=== PATIENT | female | born 1965 | race Caucasian/White ===

== ENCOUNTER → 2019-03-13 14:58 | Outpatient (BNVA) | payer BC, OTHER, SELFPAY | PROVIDERS: Family Provider Electrodiagnostic Medicine; PCP Electrodiagnostic Medicine; Visit Provider Specialist | DX: Z48.89 Encounter for other specified surgical aftercare (principal); Z96.652 Presence of left artificial knee joint; M17.11 Unilateral primary osteoarthritis, right knee | CPT/HCPCS: 73560; 73565 ==

== ENCOUNTER 2019-04-11 10:02 | Observation (INO) | payer BC, OTHER, SELFPAY ==
--- NOTE | 2019-04-03 09:32 | XR_ITS ---
WS: [id number] XR chest 2V* 36510 REASON FOR EXAM: total knee replacement FINDINGS: Heart and mediastinal interfaces were normal. The lung moreno are well aerated. There is no pneumonia, pleural effusion, mass effect. The hilum and apices are normal. There is degenerated changes throughout the thoracic spine. XR/XR chest 2V* 32244 IMPRESSION: No active cardiopulmonary changes.
[2019-04-03 09:44] VITALS: BMI 34.0
--- NOTE | 2019-04-03 10:08 | SUR.PREOP ---
PT CAME TO PRE OP AND DID NOT HAVE ANY ORDERS ENTERED FOR PRE OP OR SURGERY. CALLED ORTHO OFFICE AND SPOKE WITH ARETHA. ARETHA STATED THAT DR PANDA IS OUT OF OFFICE AND UNABLE TO ENTER ORDERS INTO EXPANSE, SHE WILL FAX PAPER ORDERS TO BE USED FOR PRE OP AND THAT DR. PANDA WILL REENTER ORDERS INTO EXPANSE WHEN SHE RETURNS TO OFFICE. WE WILL KEEP PAPER ORDERS IN CHART UNTIL EXPANSE ORDERS ARE PLACED THEN WILL REMOVE PAPER ORDERS.
--- NOTE | 2019-04-03 10:26 | ECG_ITS ---
Measurements Intervals [place] Rate: 60 P: -3 KS: 155 QRS: 1 QRSD: 84 T: 49 QT: 387 QTc: 388 SINUS RHYTHM MINIMAL VOLTAGE CRITERIA FOR LVH, CONSIDER NORMAL VARIANT [MEETS CRITERIA IN ONE OF: R(aVL), S(V1), R(V5), R(V5/V6)+S(V1)] INTERPRETATION BASED ON A DEFAULT AGE OF 40 YEARS Compared to ECG 10/24/2018 09:59:16 No significant changes Electronically Signed On 04-03-2019 11:26:31 MANAGER VAN by Jose Gold M.D. [email or web address]
--- NOTE | 2019-04-03 10:27 | ANES.PREANE2 ---
Pre-Anesthetic Assessment Pre-Anesthetic Assessment: Height/Weight: Height 1.75 m Weight 104.326 kg Proposed Procedure: Operation Date: 04/11/19 07:00 Proposed Procedures p Total Knee Arthroplasty 31430 M17.11(Right) - Elmira Stratton MD Social: Social History: No alcohol and No tobacco Exam: Pre-Anes Outpt Exam: alert, oriented x 3, clear to auscultation bilaterally and regular rate & rhythm Airway: Submandibular: WNL Cervical ROM: WNL MP: 2 Dentition: Other (teeth ok) History/ROS: No significant history except as noted Pulmonary: Pulmonary: None reported CV/HEM: CV/HEM: HTN : : None reported Hepatic: Hepatic: None reported GI: GI: None reported Metabolic: Metabolic: Morbid obesity Musc/skel: Musc/skel: OA/DJD Neuropsych: Neuropsych: None reported Anesthetic Plan: ASA status: 3 Anesthesia: Anesthesia Evaluation and General Risk of > 500 ml blood loss (7ml/kg in children): No PFSH Anesthesia PFSH: Medical History (Updated 03/13/19 @ 19:40 by Elmira Stratton MD) Osteoarthritis of knees, bilateral Surgical History (Updated 03/13/19 @ 19:40 by Elmira Stratton MD) History of total left knee replacement Social History Smoking and tobacco status: former smoker Alcohol intake: current Alcohol intake frequency: holidays/special occasions only Data Anesthesia Cardiac Studies: No Data to Display
[2019-04-03 11:03] LABS: Basophils % 0.3 %; Eosinophils # 0.1 10^3/uL (0.0-0.8); Eosinophils % 0.9 %; Hematocrit 39.7 % (37.0-47.0); Hemoglobin 12.5 g/dL (11.5-15.3); Lymphocytes # 2.2 10^3/uL (0.8-4.8); Lymphocytes % 21.2 %; Mean Corpuscular HGB Conc 31.5 g/dL (30.0-36.0); Mean Corpuscular Hemoglobin 28.7 pg (28.0-34.0); Mean Corpuscular Volume 91.3 fL (81-99); Monocytes # 0.8 10^3/uL (0.2-0.9); Monocytes % 7.6 %; Neutrophils # 7.2 10^3/uL (1.8-7.7); Neutrophils % 69.5 %; Nucleated Red Blood Cells % 0 %; Platelet Count 276 10^3/cmm (130-400); Red Blood Count 4.35 10^6/uL (4.1-5.3); Red Cell Distribution Width 13.9 % (12.1-15.1); White Blood Count 10.4 10^3/uL (4.0-10.0)
[2019-04-03 11:04] LABS: Add Urine Microscopic? YES; Bilirubin Urine 1+ (NEGATIVE); Blood Urine Neg (Negative); Glucose Urine UA Norm (Normal); Ketones Urine Negative (Negative); Leukocyte Esterase Urine Negative (Negative); Nitrate Urine Negative (Negative); Protein Urine Neg (Negative); Specific Gravity, Urine 1.025 (1.005-1.030); Urine Appearance Cloudy (CLEAR); Urine Color Yellow (Yellow); Urobilinogen Urine 1 mg/dL (Negative)
[2019-04-03 11:12] LABS: INR 0.94 (0.8-1.2)
[2019-04-03 11:19] LABS: Alanine Aminotransferase 50 U/L (0-33); Albumin Level 4.2 g/dL (3.5-5.2); Alkaline Phosphatase 115 IU/L (35-105); Anion Gap 17.1 (5-19); Aspartate Amino Transferase 33 U/L (0-32); Blood Urea Nitrogen 33 mg/dL (6-20); Calcium 10.9 mg/dL (8.5-10.5); Carbon Dioxide 25 mmol/L (22-29); Chloride 102 mmol/L (98-107); Globulin 3.4 g/dL (1.3-4.6); Glomerular Filtration Rate 38.9 mL/min (90-130); Glucose 148 mg/dL (65-115); Potassium 4.1 mmol/L (3.5-5.1); Sodium 140 mmol/L (136-145); Total Bilirubin 0.4 mg/dL (0.15-1.2); Total Protein 7.6 g/dL (6.6-8.7)
[2019-04-03 11:43] LABS: RBC Urine 0-4 /hpf (0-2)
[2019-04-03 11:44] LABS: Add Urine Culture? No; Amorphous Sediment Urine 2+; Bacteria Urine 1+; Mucus Urine 1+; Squamous Epithelial Cell Urine 0-4 (0-5)
[2019-04-11] VITALS (17 sets, daily range): BP systolic 110–152; BP diastolic 68–86; PULSE 62–75; RESP 15–20; TEMP 36.3–37; O2SAT 93–100
[2019-04-11] MEDS: sodium chloride 0.9% 1,000 ML 30 ML IV (06:05)
[2019-04-11] MEDS: CELEcoxib 200 mg Capsule 400 MG PO (06:06)
--- NOTE | 2019-04-11 06:12 | P.ANESUD_ITS ---
Pre-Anesthetic Update Pre-Anesthetic Assessment: Date of Surgery/Procedure: 04/11/19 Preop Dorcas gnosis: DJD right knee Proposed Procedure: Operation Date: 04/11/19 07:00 Proposed Procedures p Total Knee Arthroplasty 51373 M17.11(Right) - Elmira Stratton MD Any changes to Pre-Anesthetic Assessment?: No Changes from Pre-Anesthetic Assessment: sips with meds this AM (celebrex), losartan. Metoprolol last night at 1900 Last Intake: Intake Last Liquid Date 04/11/19 Last Liquid Time 04:45 Last Solid Date 04/10/19 Last Solid Time 18:00 Vitals: Temperature 97.4 F L 04/11/19 05:40 Temperature Source Temporal Artery S can 04/11/19 05:40 Pulse Rate 65 04/11/19 05:40 Respiratory Rate 18 04/11/19 05:40 Blood Pressure 152/86 04/11/19 05:40 Blood Pressure Diana n 108 04/11/19 05:40 Pulse Oximetry 96 04/11/19 05:40 Oxygen Delivery Me thod 04/11/19 05:40 Exam: Pre-Anes Outpt Exam: alert, oriented x 3, clear to auscultation bilaterally and regular rate & rhythm Cardiac Studies: No Data to Display
[2019-04-11] MEDS: midazolam 1 mg/mL INJ 5 ML 5 MG IVP (06:18)
--- NOTE | 2019-04-11 06:33 | ANES.PROC ---
Anesthesia Procedures Procedure/Date: 04/11/19 Nerve Block ^: Nerve Block 1: Main Anesthesia: general anesthesia Time Out Performed: Yes Consent: requested by attending/covering physician, from patient, risks and benefits reviewed and patient agrees to proceed Nerve block location: adductor canal (R) Anesthesia monitors applied: pulse oximetry, BP cuff and oxygen Nerve block position: supine Anesthetic Used: ropivicaine 0.5% and with decadron ( 4mg) Amount of anesthesia used (mL): 30 Nerve Stimulator Used?: No Interscalene/Femoral BLK: 4 stimuplex 21 g needle used for position and inplane approach Injection: neg aspiration of heme and paresthesia +/- Patient Tolerated Procedure: well and no complications Complications: none
--- NOTE | 2019-04-11 06:59 | W.PM.OPSUD ---
Surgery/Procedure H&P Update DATE OF PROCEDURE: April 11, 2019 DATE H&P PERFORMED: 03/13/19 H&P UPDATE INFORMATION: I have examined patient prior to procedure, No changes to prior documentation and H&P is in [facility] on date indicated PREOP DIAGNOSIS: DJD right knee PLANNED PROCEDURE: Operation Date: 04/11/19 07:00 Proposed Procedures p Total Knee Arthroplasty 83778 M17.11(Right) - Elmira Stratton MD
[2019-04-11] MEDS: vancomycin 1,000 MG SDV 1000 MG XX (08:04)
[2019-04-11] MEDS: ceFAZolin 1,000 mg SDV 1000 MG IRRIGATION ×2 (08:05)
--- NOTE | 2019-04-11 10:01 | PM.OP ---
Operative Report Date of procedure: April 11, 2019 Pre-op Diagnosis: DJD right knee Post-op Diagnosis: Right knee DJD with flexion contracture, varus deformity, and limited flexion Post-op Findings: Severe degenerative osteoarthritis with large osteophytes and flexion contracture Procedure Done: Right total knee arthroplasty utilizing the following components: The [place] triathlon Tritanium posterior stabilized left femoral component size 4 with a triathlon Tritanium tibial component size 4 and a size 4 x 19 mm posterior stabilized tibial insert. Patella was triathlon Tritanium asymmetric patella size 32 x 10 mm. All were press fitted. Implants: See above Specimens removed/disposition: Bone, disposed of Pathology: none sent Surgeon: Elmira Stratton Electrical Logging Operator: [facility] OR technicians Anesthesia: General and Nerve Block (Adductor canal) Estimated blood loss (mL): 25 Tourniquet time (min): 120 IV fluids (mL): 1,800 Urine output (mL): 400 Complications: None Findings: Severe degenerative osteoarthritis with large osteophytes surrounding the trochlear groove as well as posteriorly. Severe loss of motion with flexion contracture and limited flexion to less than 60 degrees. Condition: stable Disposition: observation Brief History: This 53-year-old woman presented with complaints of severe pain in her right knee. The knee is limited her significantly in her activities of daily living. She states she lived in chronic pain she wished to proceed with total knee arthroplasty. Risks and complications were discussed with her including risks related to her weight with a BMI at 34, and also risks secondary to her age. Procedure: The patient was brought to the operating theater, and after undergoing adequate general intubated anesthesia with supplemental regional block, the right lower extremity was prepped with Dura-Prep and draped in usual fashion following placement of a tourniquet high on the leg. The leg was then draped free. Following prepping and draping, the leg was exsanguinated, and the tourniquet was elevated to 275 mmHg for a total tourniquet time of 120 minutes. Prior to elevation of the tourniquet, but following exposure of the site of surgery, a surgical pause was performed. At the time of the surgical pause, we confirmed the site and side of surgery. Additionally, we confirmed the appropriate and timely administration of preoperative antibiotics, Ancef 2 g and transexemic acid 1 g. The availability of equipment was confirmed, and the patient's identity was verbalized as well. Following the surgical pause, an incision was made centering over the patella continuing proximally and distally as necessary to allow access to the knee joint. Dissection continued through skin and soft tissues using a scalpel. Hemostasis was obtained using electrocautery. The skin incision was followed by a median parapatellar arthrotomy. The leg was extended and the patella was everted. Following this, the leg was returned to flexed position. The distal femur was exposed and a drill hole was made in this for placement of the distal femoral jig. The distal femoral jig was set at 5? of valgus. The distal femoral cutting block was then placed in appropriate position, and an judd wing was used to confirm an appropriate amount of distal femur would be resected. The distal femoral resection was accomplished with 10 mm of bone being resected distally. After the distal femoral resection had been accomplished, the femur was measured and it measured a size 4. Medial lateral dimension also measured a size 4. A size 4 femoral cutting block was placed in position, and we were then able to accomplish the anterior, posterior and chamfer cuts. This jig was then removed and the notch guide was placed in position. With the notch guide in appropriate position, the notch was excised including resection of the anterior and posterior cruciate ligaments. This notch was to allow for the posterior stabilized femoral component. At this point, the femur was prepared and attention was directed to the proximal tibia. The posterior knee retractor was placed along with medial and lateral retractors. Further resection of the menisci were accomplished as we had better visualization. A complete meniscectomy was performed both medially and laterally with care being taken to protect the popliteus. Retractors were then placed so that the proximal tibia was well visualized. A drill hole was then made in the tibia for placement of the intramedullary guide. This guide was placed so that approximately 2 mm of bone would be resected from the deficient medial tibial plateau. The intramedullary guide was utilized supplemented with an extramedullary guide to assure appropriate alignment for the proximal tibial resection. The proximal tibial jig was then evaluated, pinned in position, and the proximal tibial resection was accomplished without difficulty. The jig was removed and the proximal tibia was measured. It measured a size 4. We then performed a trial reduction with an 16 mm insert into the size 4 tray. The femoral component was placed in position for the trial reduction, and the knee was placed through range of motion. The knee was felt to be slightly loose medially greater than laterally. We were able to increase to a 19 mm insert. There was excellent stability with excellent varus-valgus alignment with appropriate patellar tracking. This was felt to be the appropriate size insert. There was full extension and flexion without lift off and the rotation of the tibia was marked. Alignment was checked from the hip to the ankle, and this was noted to be appropriate as well. Attention was then directed to the patella. The patella was measured with a caliper. We resected sufficient patella to leave approximately 15 mm of patella remaining. Measurements of the patella then indicated that a size asymmetric 32 mm x 10 mm was the appropriate patellar size. We then placed the jig to drill for the 3 pegs of the press-fit patella, and these drill holes were made without incident. A trial patella was then placed and the knee was placed through range of motion. The patella was noted to track nicely without evidence of subluxation. The femur was prepared for a press-fit femur by drilling 2 holes for the femoral pegs. All trial components were subsequently removed. The tibial tray was then pinned into position, and we broached the tibia for the stem of the tibial component. Subsequently, 4 drill holes were made for placement of the press-fit tibia. This was accomplished without difficulty. Care was taken to assure appropriate rotation of the tibia as well as appropriate position on the proximal tibia. The tibial tray was completely seated on the proximal tibia. Following broaching, the tibial guide was removed, and all surfaces were copiously irrigated. The surfaces were then dried and a bone plug was placed into the distal femur. Exparel was also injected at this point. The Tritanium tibia was impacted into position. The beaded femur was then impacted into position in a cementless fashion. The tibial insert was placed. The patella was pressed into position with a patellar clamp. The knee was irrigated with 20 mL of Betadine and 500 mL of normal saline, and this was allowed to remain in the knee for 3-4 minutes. The knee was then copiously irrigated and suctioned dry. Attention was then directed to closure. Closure was accomplished with 0 Vicryl in the fascial tissues, 2-0 Monocryl was used in the subcutaneous tissues, and the skin was closed with skin jesús. A sterile dressing was then placed consisting of Xeroform gauze, 4 x 4's, ABDs, sterile soft roll, and an Troy wrap. The patient was returned the Recovery Room in a satisfactory condition. X-rays were obtained there. The patient will be discharged to the floor for postoperative rehabilitation and pain management. She'll be admitted to the floor as observation for medical and pain management as well as aggressive physical therapy and range of motion. There were no specimens and no complications.
[2019-04-11] MEDS: fentaNYL 50 mcg/mL INJ 2mL IVP ×2 (10:19→10:24)
--- NOTE | 2019-04-11 10:28 | XR_ITS ---
WS: [id number] Right knee, 2 views, 04/11/2019 Clinical Data: Postop Comparison: Right knee, 03/13/2019. Findings: A right knee arthroplasty has been performed. The components are in good position. Midline jesús ar e seen. There are air-fluid levels in the joint from the recent surgery. XR/XR knee RT 3V* [id number] Impression: Right knee arthroplasty.
--- NOTE | 2019-04-11 10:30 | SUR.PHASEI ---
1009 PT TO PACU AWAKE ALERT , C/O OF RT KNEE PAIN OF 8 SEE PAIN MED GIVEN, PT REPOSITIONED FIRST ICE TO KNEE DISTAL PULSE STRONG REGULAR AND MARKED BILAT FOOT PUMPS ON BISHOP TO DD WITH YELLOW CLEAR URINE TO TUBING AND BAG. 1015 PT MORE ALERT ON RA TRIAL, PT TAKING OCC ICE CHIP 1016 PT SATS 89-90% PLACED ON 3LNC SATS QUICKLY UP TO 95% NO DISTRESS SEE PAIN MEDS GIVEN 1032 X RAYS DONE, PT ALERT VSS NO DISTRESS RT KNEE DRESSING D/I
[2019-04-11] MEDS: oxyCODONE-APAP 5-325 mg Tablet 1 TAB PO ×2 (11:13→17:19)
--- NOTE | 2019-04-11 11:14 | SUR.PHASEI ---
1050 PT TO FLOOR AWAKE ALERT TALKATIAVE WITH MURALI RN AND C/O OF PAIN OF 7 TO RT KNEE PT OK WITH TAKING PO PAIN MED FACE SCALE 3 , BP 132/85, SATS ON RA 98% HR 65, RESP 20
[2019-04-11] MEDS: TRAMadol 50 mg Tablet PO ×2 (12:11→19:56)
[2019-04-11] MEDS: acetaminophen 500 mg Tablet 1000 MG PO ×2 (12:11→17:18)
[2019-04-11] MEDS: sodium chloride 0.9% 1,000 ML 80 ML IV (12:12)
[2019-04-11] MEDS: chlorhexidine gluconate 0.12% Btl 473 mL 30 ML MUCOUS MEM ×3 (12:12→20:54)
[2019-04-11 14:07] LABS: Basophils % 0.2 %; Hematocrit 35.1 % (37.0-47.0); Hemoglobin 10.8 g/dL (11.5-15.3); Lymphocytes # 0.8 10^3/uL (0.8-4.8); Lymphocytes % 4.4 %; Mean Corpuscular HGB Conc 30.8 g/dL (30.0-36.0); Mean Corpuscular Hemoglobin 28.1 pg (28.0-34.0); Mean Corpuscular Volume 91.2 fL (81-99); Mean Platelet Volume 10.4 fL (7.4-10.4); Monocytes # 0.3 10^3/uL (0.2-0.9); Monocytes % 1.4 %; Neutrophils # 17.6 10^3/uL (1.8-7.7); Neutrophils % 92.9 %; Nucleated Red Blood Cells % 0 %; Platelet Count 258 10^3/cmm (130-400); Red Blood Count 3.85 10^6/uL (4.1-5.3); Red Cell Distribution Width 13.5 % (12.1-15.1)
[2019-04-11 14:33] LABS: Alanine Aminotransferase 47 U/L (0-33); Albumin Level 3.6 g/dL (3.5-5.2); Alkaline Phosphatase 97 IU/L (35-105); Anion Gap 20.2 (5-19); Aspartate Amino Transferase 40 U/L (0-32); Blood Urea Nitrogen 19 mg/dL (6-20); Calcium 8.9 mg/dL (8.5-10.5); Carbon Dioxide 19 mmol/L (22-29); Chloride 101 mmol/L (98-107); Globulin 3.2 g/dL (1.3-4.6); Glomerular Filtration Rate 51.4 mL/min (90-130); Glucose 243 mg/dL (65-115); Potassium 4.2 mmol/L (3.5-5.1); Sodium 136 mmol/L (136-145); Total Bilirubin 0.3 mg/dL (0.15-1.2); Total Protein 6.8 g/dL (6.6-8.7)
[2019-04-11] MEDS: sennosides-docusate Tablet 2 TAB PO (17:17)
[2019-04-11] MEDS: iron polysaccharide complex 150 mg Capsule PO (17:18)
[2019-04-11] MEDS: calcium carbonate 500 mg Chew Tablet 1000 MG PO (17:18)
[2019-04-11] MEDS: CELEcoxib 200 mg Capsule PO (20:52)
[2019-04-11] MEDS: duloxetine 30 mg Capsule PO (20:52)
[2019-04-11] MEDS: metoprolol succinate ER (24 HR) 100 mg Tablet PO (21:45)
[2019-04-12] VITALS (7 sets, daily range): BP systolic 110–133; BP diastolic 68–83; PULSE 58–74; RESP 16–18; TEMP 36.6–36.9; O2SAT 96–99
[2019-04-12] MEDS: TRAMadol 50 mg Tablet PO ×2 (02:01→10:46)
[2019-04-12] MEDS: sodium chloride 0.9% 1,000 ML 80 ML IV (02:02)
[2019-04-12 05:32] LABS: Basophils % 0.1 %; Hematocrit 29.4 % (37.0-47.0); Hemoglobin 9.1 g/dL (11.5-15.3); Lymphocytes # 2.1 10^3/uL (0.8-4.8); Lymphocytes % 18.1 %; Mean Corpuscular Hemoglobin 28.9 pg (28.0-34.0); Mean Corpuscular Volume 93.3 fL (81-99); Mean Platelet Volume 10.2 fL (7.4-10.4); Monocytes # 1.4 10^3/uL (0.2-0.9); Monocytes % 11.8 %; Neutrophils # 8.1 10^3/uL (1.8-7.7); Neutrophils % 69.4 %; Nucleated Red Blood Cells % 0 %; Platelet Count 249 10^3/cmm (130-400); Red Blood Count 3.15 10^6/uL (4.1-5.3); Red Cell Distribution Width 13.8 % (12.1-15.1); White Blood Count 11.6 10^3/uL (4.0-10.0)
[2019-04-12 05:45] LABS: Anion Gap 14.8 (5-19); Blood Urea Nitrogen 15 mg/dL (6-20); Carbon Dioxide 22 mmol/L (22-29); Chloride 104 mmol/L (98-107); Glomerular Filtration Rate 64.8 mL/min (90-130); Glucose 183 mg/dL (65-115); Osmolality Calculated 285 mOsm/kg (285-295); Potassium 3.8 mmol/L (3.5-5.1); Sodium 137 mmol/L (136-145)
[2019-04-12] MEDS: oxyCODONE-APAP 5-325 mg Tablet 1 TAB PO ×2 (07:30→12:02)
--- NOTE | 2019-04-12 07:54 | PC.OT ---
OT screen completed. Pt had already gotten self dressed prior to OT arriving. She demonstrated ability to doff and don socks, complete toilet transfer with use of walker, and wash hands at sink without loss of balance. She lives in home without steps or stairs, has shower chair and walker from prior knee surgery. OT not recommended at this time.
[2019-04-12] MEDS: aspirin 325 mg EC Tablet PO (08:27)
[2019-04-12] MEDS: iron polysaccharide complex 150 mg Capsule PO (08:27)
[2019-04-12] MEDS: hydroCHLOROthiazide 25 mg Tablet PO (08:27)
[2019-04-12] MEDS: calcium carbonate 500 mg Chew Tablet 1000 MG PO (08:27)
[2019-04-12] MEDS: cholecalciferol (vitamin D3) 1,000 unit Tablet 1000 UNIT PO (08:27)
[2019-04-12] MEDS: losartan 50 mg Tablet 100 MG PO (08:27)
[2019-04-12] MEDS: chlorhexidine gluconate 0.12% Btl 473 mL 30 ML MUCOUS MEM ×2 (08:28→12:00)
[2019-04-12] MEDS: sennosides-docusate Tablet 2 TAB PO (08:28)
[2019-04-12] MEDS: multivitamin therapeutic Tablet 1 TAB PO (08:28)
[2019-04-12] MEDS: acetaminophen 500 mg Tablet 1000 MG PO (10:45)
[2019-04-12] MEDS: CELEcoxib 200 mg Capsule PO (10:45)
--- NOTE | 2019-04-12 12:19 | PC.CHAP ---
Pastoral Care Encounter/Spiritual Assessment Type of Contact [] Declined dispute resolution analyst visit [] Patient/Family/Request visit [] Outpatient visit [] Follow-up visit [] Physician referral [] Code/Alert [x] Routine visit [] Staff referral [] Actively dying [] Patient sleeping [] Family support [] [] Out of room [] Palliative care [] [] Receiving care in room [] Pre-surgical visit [] Trauma [] Long length of stay [] ICU visit [] Other: Relational/Emotional Strength [x] Patient feels connected with others/family/visitors/staff [] Distress [] Loneliness/isolation [] Abandonment Spirituality of Patient [x] Person of Brenda [x] Attends Yazdanism of their Brenda [x] Believes in Prayer [] Reads Bible or Temple materials [] There are Spiritual issues to be addressed Staff Respiratory Therapist Interventions [x] Prayer [x] Active listening [x] Non-anxious presence [x] Spiritual/emotional support [] Crisis/trauma care [] Spiritual counseling [] Bereavement support [] Provided bereavement packet [] Provided Bible/devotional materials [] Provided toy/stuffed animal, coloring book to patient or family member [] Provided Communion [] Anointing/[place] [] Salvation [x] Completed spiritual assessment [] Other: Impact on Illness or Injury [] Angry [] Fearful [] Anxious [] Often cries [] Exhaustion [] Unable to work [] Unable to attend christianity [] Unable to walk/stand [] Unable to read [] Unable to drive [] Unable to eat/drink [] Unable to sleep [] Unable to be with family [] Patient intubated [] Other: Summary patient very happy with results Time spent with patient 10 min
--- NOTE | 2019-04-12 13:10 | P.DS_ITS ---
Discharge Providers Date of Admission: 04/11/19 10:02 Date of Discharge: April 12, 2019 Attending Provider at Admission: Elmira Stratton MD Attending Provider at Discharge: Elmira Stratton MD Primary Care Provider: Patrick Peters DO Diagnoses at Discharge Discharge Diagnosis (1) Osteoarthritis of knees, bilateral: Status: Acute Problem details: Patient is s/p bilateral total knee arthroplasties. Qualifiers: Osteoarthritis type: primary Qualified Code(s): M17.0 - Bilateral primary osteoarthritis of knee (2) History of total right knee replacement (TKR): Status: Acute Reason for Visit Reason for Visit: Reason For Visit: Primary osteoarthritis right knee Hospital Course 2 Hospital Course: Patient underwent right total knee arthroplasty on yesterday, April 11, uneventfully. Procedure accomplished was: Right total knee arthro plasty utilizing the following components: The [place] triathlon Tritanium posterior stabilized left femoral component size 4 with a triathlon Tritanium tibial component size 4 and a size 4 x 19 mm posterior stabilized tibial insert. Patella was triathlon Tritanium asymmetric patella size 32 x 10 mm. All were press fitted. Postoperatively, she was brought to the floor for observation, pain management, and physical therapy. Patient previously underwent left total knee arthroplasty, and she has done very well from this. The plan was that the patient would work with physical therapy and if able, would be discharged to home. Unfortunately, her insurance does not allow home physical therapy. This was also the case following her last total knee, and she did very well following this. Discharge Summary: The patient will be discharged to home and will participate in a home physical therapy without the assistance of home physical therapist. Physical Exam Narrative: EXAM NARRATIVE: The patient's knee dressing is removed. There is no evidence of infection or DVT. There is no drainage. The knee is well aligned. She has discomfort along the medial aspect, but there is no pain with varus stress testing. Range of motion is minimally tender. Const: COMMON NORMALS: no apparent distress, oriented x3 and alert GENERAL APPEARANCE: cooperative and comfortable ORIENTATION/CONSCIOUSNESS: Yes awake HENMT: COMMON NORMALS: normocephalic and head/scalp atraumatic HEAD & SCALP: normocephalic and atraumatic Eye: GENERAL EYE: normal appearance of both eyes Chest: COMMONS NORMALS: inspection of chest normal Resp: COMMON NORMALS: normal respiratory effort EFFORT & INSPECTION: Yes able to speak in complete sentences and Yes symmetric chest movement Extremity: RIGHT LOWER EXTREMITY: Yes knee joint Right knee: Yes inspection (No erythema or drainage.), Yes palpation (Minimal tenderness to palpation medially.) and Yes neurovascular exam (Intact with no evidence of DVT.) Neuro: COMMON NORMALS: oriented x3 SENSORIUM/ORIENTATION: Yes alert Psych: COMMON NORMALS: mental status grossly normal APPEARANCE: Yes grossly normal ATTITUDE: Yes calm and Yes engaged ATTENTION/CONCENTRATION: Yes attention grossly intact Skin: COMMON NORMALS: no rashes or lesions noted GENERAL SKIN EXAM: no rashes or lesions noted Urinary Catheter Management^: [place]: Cath Placed During This Visit: yes, but has since been removed by the nurse Reason for Continuing Indwelling Catheter: Not indwelling catheter Urinary Catheter Date of Insertion: 04/11/19 Urinary Catheter Time of Insertion: 07:20 Date Urinary Catheter Removed: 04/12/19 Time Urinary Catheter Discontinued: 06:30 Discharge Data Data Completed and Pending: Completed Studies During Hospitalization Category Date Time Status XR chest 2V* 7104 6 Routine Exams 04/03/19 09:32 Completed XR knee RT 3V* 73 562 Stat Exams 04/11/19 10:28 Completed Pending at discharge Category Date Time Status Antibody Identifi cation Routine Lab 04/11/19 06:00 Results Leukocyte Reduced RBC Routine Lab 04/11/19 06:00 Results Type and Screen R outine Lab 04/11/19 06:00 Results Urinalysis Routin e Lab 04/11/19 05:29 Ordered Labs from last 24 hours 04/12/19 04/12/19 04/11/19 04:38 04:38 13:42 WBC 11.6 H RBC 3.15 L Hgb 9.1 L Hct 29.4 L MCV 93.3 MCH 28.9 MCHC 31.0 RDW 13.8 Plt Count 249 MPV 10.2 Neut % (Auto) 69.4 Lymph % (Auto) 18.1 [place] % (Auto) 11.8 Eos % (Auto) 0.0 Baso % (Auto) 0.1 Neut # (Auto) 8.1 H Lymph # (Auto) 2.1 [place] # (Auto) 1.4 H Eos # (Auto) 0.0 Baso # (Auto) 0.0 Nucleated RBC % (a uto) 0 Nucleated RBCs # 0.0 Sodium 137 136 Potassium 3.8 4.2 Chloride 104 101 Carbon Dioxide 22 19 L Anion Gap 14.8 20.2 H BUN 15 19 Creatinine 0.9 1.1 H GFR Calculation 64.8 L 51.4 L Glucose 183 H 243 H Calculated Osmolal ity 285 Calcium 9.0 8.9 Total Bilirubin 0.3 AST 40 H ALT 47 H Alkaline Phosphata se 97 Total Protein 6.8 Albumin 3.6 Globulin 3.2 04/11/19 13:42 WBC 19.0 H RBC 3.85 L Hgb 10.8 L Hct 35.1 L MCV 91.2 MCH 28.1 MCHC 30.8 RDW 13.5 Plt Count 258 MPV 10.4 Neut % (Auto) 92.9 Lymph % (Auto) 4.4 [place] % (Auto) 1.4 Eos % (Auto) 0.0 Baso % (Auto) 0.2 Neut # (Auto) 17.6 H Lymph # (Auto) 0.8 [place] # (Auto) 0.3 Eos # (Auto) 0.0 Baso # (Auto) 0.0 Nucleated RBC % (a uto) 0 Nucleated RBCs # 0.0 Sodium Potassium Chloride Carbon Dioxide Anion Gap BUN Creatinine GFR Calculation Glucose Calculated Osmolal ity Calcium Total Bilirubin AST ALT Alkaline Phosphata se Total Protein Albumin Globulin Vitals: Last Vital Signs Temp 97.8 F 04/12/19 10:41 Pulse 63 04/12/19 10:41 Resp 18 04/12/19 12:02 BP 133/83 04/12/19 10:41 Pulse Ox 99 04/12/19 10:41 Discharge Plan Discharge Patient Disposition: Home, Self-Care Condition: Stable Prescriptions: New oxycodone-acetaminophen 5-325 mg Tablet 1 tab PO Q4H PRN (Reason: Severe Pain) Qty: 30 RF: 0 acetaminophen 500 mg Tablet 500 mg PO Q8H 30 Days Qty: 90 RF: 0 aspirin 325 mg Tablet,Delayed Release (Dr/Ec) 325 mg PO DAILY PRN (Reason: DVT prophylaxis) 30 Days Qty: 30 RF: 0 Continued losartan-hydrochlorothiazide 100-25 mg tablet 1 tab PO QDAY RF: 0 metoprolol succinate 100 mg tablet extended release 24 hr 100 mg PO QPM RF: 0 trazodone 50 mg tablet 25 mg PO QDAY RF: 0 duloxetine 30 mg PO BEDTIME RF: 0 diclofenac sodium 75 mg Tablet,Delayed Release (Dr/Ec) 75 mg PO BID RF: 0 Discharge Orders: Discharge Order (Routine); Ordered 04/12/19 Ordered By: Elmira Stratton Referrals: [facility] [Outside] Elmira Stratton MD [Physician] - 04/26/19 10:15 am Discharge Diet: Usual diet Discharge Activity: Resume usual activity, Increase activity as tolerated, Use walker/crutches as instructed and As per PT/OT instructions Patient Instructions: Total Knee Replacement (DC) Activity Restrictions/Additional Instructions: May weight bear as tolerated. Ambulation, range of motion, strengthening, and gait training per physical therapy in hospital instruction. 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
== END 2019-04-12 14:04 | disposition home or self-care (01) ==
LOC: MEDSURG 10:04
PROVIDERS: Admitting Provider Specialist; Family Provider Electrodiagnostic Medicine; PCP Electrodiagnostic Medicine; Visit Provider Specialist
PROC: (CPT 27447; principal; 2019-04-11 07:00)
DX: M17.11 Unilateral primary osteoarthritis, right knee (principal); Z82.49 Family history of ischemic heart disease and other diseases of the circulatory system; Z83.3 Family history of diabetes mellitus; Z87.891 Personal history of nicotine dependence; I10 Essential (primary) hypertension; E66.01 Morbid (severe) obesity due to excess calories; Z68.34 Body mass index [BMI] 34.0-34.9, adult
CPT/HCPCS: 27447; 12345; 36415; 51702; 71046; 73221; 73562; 80048; 80053; 81001; 85025; 85610; 86850; 86900; 86902; 93005; 96361; 96365; 96374; 96375; 97110; 97116; 97161; C1776; C9290; G0378; J0131; J0690; J1100; J2001; J2250; J2405; J2704; J2795; J3010; J3370; J3490; J7030

== ENCOUNTER → 2019-04-26 10:18 | Outpatient (BNVA) | payer BC, OTHER, SELFPAY | PROVIDERS: Family Provider Electrodiagnostic Medicine; PCP Electrodiagnostic Medicine; Visit Provider Specialist | DX: Z48.89 Encounter for other specified surgical aftercare (principal); Z96.653 Presence of artificial knee joint, bilateral | CPT/HCPCS: 73560; 73565 ==

== ENCOUNTER → 2019-05-08 10:20 | Outpatient (BNVA) | payer BC, OTHER, SELFPAY | PROVIDERS: Family Provider Electrodiagnostic Medicine; PCP Electrodiagnostic Medicine; Visit Provider Specialist | DX: Z48.89 Encounter for other specified surgical aftercare (principal); Z96.653 Presence of artificial knee joint, bilateral | CPT/HCPCS: 73565 ==

== ENCOUNTER 2019-05-08 14:48 | Outpatient (CLI) | payer BC, OTHER, SELFPAY | END 2019-05-08 14:49 | disposition home or self-care (01) | LOC: SPT 14:49 | PROVIDERS: Family Provider Electrodiagnostic Medicine; PCP Electrodiagnostic Medicine; Visit Provider Specialist | DX: Z46.89 Encounter for fitting and adjustment of other specified devices (principal); S76.111D Strain of right quadriceps muscle, fascia and tendon, subsequent encounter; X58.XXXD Exposure to other specified factors, subsequent encounter; Z96.651 Presence of right artificial knee joint | CPT/HCPCS: L1812 ==

== ENCOUNTER → 2019-05-15 08:45 | Outpatient (BNVA) | payer BC, OTHER, SELFPAY | PROVIDERS: Family Provider Electrodiagnostic Medicine; PCP Electrodiagnostic Medicine; Visit Provider Specialist | DX: Z48.89 Encounter for other specified surgical aftercare (principal); Z96.653 Presence of artificial knee joint, bilateral | CPT/HCPCS: 73560; 73565 ==

== ENCOUNTER → 2019-05-25 08:25 | Outpatient (BNVA) | payer BC, OTHER, SELFPAY | PROVIDERS: Family Provider Electrodiagnostic Medicine; PCP Electrodiagnostic Medicine; Visit Provider Specialist | DX: Z48.89 Encounter for other specified surgical aftercare (principal); Z96.653 Presence of artificial knee joint, bilateral | CPT/HCPCS: 73560; 73565 ==

== ENCOUNTER → 2019-06-21 14:52 | Outpatient (BNVA) | payer BC, OTHER, SELFPAY | PROVIDERS: Family Provider Electrodiagnostic Medicine; PCP Electrodiagnostic Medicine; Visit Provider Specialist | DX: Z48.89 Encounter for other specified surgical aftercare (principal); Z96.651 Presence of right artificial knee joint; Z96.652 Presence of left artificial knee joint | CPT/HCPCS: 73560; 73565 ==

== ENCOUNTER 2019-12-27 06:45 | Outpatient (CLI) | payer BC, OTHER, SELFPAY ==
--- NOTE | 2019-12-27 | US_ITS ---
WS: [id number] ULTRASOUND ABDOMEN LIMITED CLINICAL INFORMATION: TRANSAMINASES SERUM ELEVATED COMPARISON: None. FINDINGS: Liver Size: Enlarged Craniocaudal length: 21.3 cm. Echogenicity: Coarse echogenicity Surface nodularity: None. Mass (size and location): None. Bile ducts Intrahepatic ducts: Normal. Common bile duct diameter: 0.5 cm. Gallbladder Removed Pancreas Normal as visualized. Right kidney: Normal. Hydronephrosis: None. Size: 9.9 cm x 6.7 cm x 6.4 cm. Abdominal aorta and IVC Visualized portions are normal. Ascites: None. US/US abdomen limited [id number] IMPRESSION: 1. Hepatomegaly with diffuse fatty infiltration. 2. Gallbladder has been removed. 3. Normal common bile duct. 4. No hydronephrosis in right kidney.
== END 2019-12-27 06:46 | disposition home or self-care (01) ==
PROVIDERS: PCP Electrodiagnostic Medicine; Visit Provider Electrodiagnostic Medicine
DX: R74.01 Elevation of levels of liver transaminase levels (principal); R16.0 Hepatomegaly, not elsewhere classified; K76.0 Fatty (change of) liver, not elsewhere classified
CPT/HCPCS: 76705

== ENCOUNTER → 2020-01-01 08:16 | Outpatient (BNVA) | payer BC, OTHER, SELFPAY | PROVIDERS: PCP Electrodiagnostic Medicine; Visit Provider Specialist | DX: Z48.89 Encounter for other specified surgical aftercare (principal); Z96.651 Presence of right artificial knee joint; M25.461 Effusion, right knee | CPT/HCPCS: 73560; 73565 ==

== ENCOUNTER 2021-09-24 07:51 | Outpatient (CLI) | payer BC, OTHER, SELFPAY ==
--- NOTE | 2021-09-24 08:02 | MM_ITS ---
WS: [id number] SCREENING DIGITAL BREAST TOMOSYNTHESIS MAMMOGRAM WITH CAD HISTORY: SCREENING COMPARISON: 11/16/2016, 08/20/2014 Bilateral CC and MLO with tomosynthesis and synthetic mammography submitted. Computer aided detection analyzed. Breast composition: There are scattered areas of fibroglandular density. Asymmetry in the central RIG HT breast seen best on the CC projection is stable. There is a new nodule measuring 9 mm in the poste rior LEFT breast near 1:00. This may be due to adjacent nodules or single ovoid nodule. MM/[place] [id number] IMPRESSION: BI-RADS: 0-Incomplete: Need additional imaging evaluation FOLLOW UP: Need Additional Imaging LEFT breast: Spot compression views (CC and MLO). True ML. Ultrasound to follow if abnormality persists.
== END 2021-09-24 07:52 | disposition home or self-care (01) ==
PROVIDERS: PCP Electrodiagnostic Medicine; Visit Provider Electrodiagnostic Medicine
DX: Z12.31 Encounter for screening mammogram for malignant neoplasm of breast (principal)
CPT/HCPCS: 77063; 77067

== ENCOUNTER 2021-11-12 14:06 | Outpatient (CLI) | payer BC, OTHER, SELFPAY ==
--- NOTE | 2021-11-12 14:12 | MM_ITS ---
WS: [id number] ADDITIONAL VIEWS LEFT MAMMOGRAM with tomosynthesis. LEFT BREAST ULTRASOUND HISTORY: ABNORMAL MAMMO COMPARISON: 09/24/2021 and 11/16/2016 LEFT MAMMOGRAM: Spot compression views and true ML with tomosynthesis and sympathetic mammography. The lobulated asymmetry persists in the posterior LEFT breast near 12-1 o'clock. This may be two smal l adjacent nodules or a lymph node with lucent hilum. LEFT ovoid mass measures 8 mm. BREAST ULTRASOUND 2-D and color Doppler imaging submitted. The 8 mm nodule is not definitely identified by ultrasound. There are a few small cysts which are loretta ntified but not in the correct dictation. Favor the mammographic finding is probably benign but shoul d have follow-up evaluation. MM/[place] [id number] IMPRESSION: BI-RADS: 3-Probably Benign FOLLOW UP: 6 Month Follow-up Recommend diagnostic LEFT mammogram and possible ultrasound follow-up in 6 [facility] hs.
== END 2021-11-12 14:07 | disposition home or self-care (01) ==
PROVIDERS: PCP Electrodiagnostic Medicine; Visit Provider Electrodiagnostic Medicine
DX: R92.8 Other abnormal and inconclusive findings on diagnostic imaging of breast (principal)
CPT/HCPCS: 76642; 77061

== ENCOUNTER 2022-07-28 14:38 | Outpatient (CLI) | payer BC, OTHER, SELFPAY ==
--- NOTE | 2022-07-28 14:43 | MM_ITS ---
WS: [id number] RIGHT DIGITAL TOMOSYNTHESIS MAMMOGRAPHY WITH CAD. LEFT breast ultrasound, limited HISTORY: 6[facility] COMPARISON: 11/12/2021, 09/24/2021, 11/16/2016 Technique: CC, MLO and ML views. Spot compression LEFT CC and MLO. Breast composition: There are scattered areas of fibroglandular density. Ovoid mass towards the 12-1 o'clock axis at a posterior depth is more likely a lymph node on today's imaging exam. No increase i n size since the prior examination. Ovoid mass measures 8.5 mm with a lucent center. LEFT breast ultrasound, limited. Breast mass is not identified by ultrasound. There are a few small cysts within the LEFT breast but t hese are not in a similar location nor do they correspond to the size of the mammographic abnormality . MM/[place] [id number] IMPRESSION: BI-RADS: 3-Probably Benign FOLLOW UP: 6 Month Follow-up Patient to return in 6 months for annual mammogram. At that time this ovoid mas s in the posterior LEFT breast can be reevaluated. Favor this is probably a lym ph node.
== END 2022-07-28 14:39 | disposition home or self-care (01) ==
LOC: RAD 14:41
PROVIDERS: PCP Electrodiagnostic Medicine; Visit Provider Electrodiagnostic Medicine
DX: Z12.31 Encounter for screening mammogram for malignant neoplasm of breast (principal); N60.02 Solitary cyst of left breast
CPT/HCPCS: 76642; 77061; G0279

== ENCOUNTER 2023-03-16 14:09 | Outpatient (CLI) | payer BC, OTHER, SELFPAY ==
--- NOTE | 2023-03-16 14:17 | MM_ITS ---
WS: [id number] DIAGNOSTIC BILATERAL DIGITAL BREAST TOMOSYNTHESIS MAMMOGRAPHY WITH CAD HISTORY: 6[facility] ABN MAMMO COMPARISON: 09/24/2021 TECHNIQUE: Bilateral craniocaudad, mediolateral oblique, and mediolateral views are submitted with to mosynthesis and SM. Spot compression LEFT CC and MLO. Computer aided detection utilized. Breast composition: There are scattered areas of fibroglandular density. No interval change in appear ance of either breast. The lobulated nodule in the posterior upper outer quadrant of the LEFT breast is reidentified with no change. Stable since 09/24/2021. Due to long-term stability ultrasound is not necessary at this time. There is been no change in any of the small asymmetries within either breast. No suspicious calcification. IMPRESSION: MM/[place] [id number] BI-RADS: 2-Benign FOLLOW UP: 1 Year Follow-up
== END 2023-03-16 14:10 | disposition home or self-care (01) ==
LOC: RAD 14:09
PROVIDERS: PCP Electrodiagnostic Medicine; Visit Provider Electrodiagnostic Medicine
DX: R92.8 Other abnormal and inconclusive findings on diagnostic imaging of breast (principal); R92.323 Mammographic fibroglandular density, bilateral breasts; N63.21 Unspecified lump in the left breast, upper outer quadrant; N64.89 Other specified disorders of breast
CPT/HCPCS: 77062; G0279

== ENCOUNTER 2023-12-02 10:13 | Day surgery (SDC) | payer BC, OTHER, SELFPAY ==
[2023-12-02] VITALS (9 sets, daily range): BP systolic 149–168; BP diastolic 78–98; PULSE 64–77; RESP 17–18; TEMP 36.3–36.9; O2SAT 98–100; BMI 29.9
--- NOTE | 2023-12-02 01:13 | W.PM.OPSFHP ---
Same Day Surgery H&P Indication for Procedure/HPI DATE OF PROCEDURE: December 02, 2023 CHIEF COMPLAINT/INDICATIONFOR SURGICAL PROCEDURE: abnormal uterine bleeding PREOP DIAGNOSIS: abnormal uterine bleeding PLANNED PROCEDURE: Operation Date: 12/02/23 11:55 Proposed Procedures p Hysteroscopy Hysteroscopy w/ Endometrial Sampling 34283, N93.9(Not Applicable) - MD kamari Mathew Possible endometrial Poylpectomy(Not Applicable) - Ivan Good MD 58 y.o. last normal menstrual period in 2017 had episode of vaginal bleeding in August Medications/Allergies* Home Medications Medication Instructions Recorded Confirmed Type atorvastatin 10 mg tablet 10 mg PO DAILY 10/20/23 12/01/23 History empagliflozin 10 mg tablet 10 mg PO DAILY 10/20/23 12/01/23 History (Jardiance) glimepiride 1 mg tablet 1 mg PO DAILY 10/20/23 12/01/23 History lisinopril 2.5 mg tablet 2.5 mg PO DAILY 10/20/23 12/01/23 History tirzepatide 5 mg/0.5 mL mg SUBCUT 12/01/23 History subcutaneous pen injector (Mounjaro) Allergies/Adverse Reactions Allergy/AdvReac Type Severity Reaction Status Date / Time No Known Allergies Allergy Verified 12/01/23 08:57 Pertinent History/Comorbid Conditions* Medical History (Updated 10/20/23 @ 17:06 by Kanwal Lozano APN, TANYA) No pertinent past medical history Neghx:thyroid,dvt/pe PCP: Dr. Peters Accelerated essential hypertension Type 2 diabetes mellitus Osteoarthritis of knees, bilateral Patient is s/p bilateral total knee arthroplasties. Surgical History (Updated 10/20/23 @ 16:56 by Kanwal Lozano APN, TANYA) History of bilateral knee replacement H/O tubal ligation Hx of cholecystectomy History of arthroscopic knee surgery Family History (Updated 10/20/23 @ 08:45 by Anna Richardson LPN) Diabetes Brother Breast cancer Mother Cancer Father Stomach cancer Hypertension Brother Mother Sister Denies family history of Ovarian cancer Prostate cancer Uterine cancer Thyroid disease Stroke Social History Smoking and tobacco/nicotine status: never used tobacco/nicotine Pertinent Exam Findings alert, oriented x 3, clear to auscultation bilaterally and regular rate & rhythm Pertinent Data Pelvic sono 09-16-23 uterus 6.8 cm Endometrium thickened and heterogeneous, 9 mm Normal ovaries Pap 8-24 NILM, endometrial cells identified; negative HPV Recommendations Surgery/Procedure today Coding Level of Care Code Acute Code for Chg Fwd Time Spent (min) 30
--- NOTE | 2023-12-02 10:48 | ECG_ITS ---
[facility]: 2023-12-02 Pat Name: Shauna Mendoza Department: Room: Gender: Female Press Writer: : 1965 Requested By: Abrahan Ramirez Order Number: [id number] Reading MD: CALVIN SANZ Measurements Intervals [place] Rate: 58 P: 55 VA: 172 QRS: 17 QRSD: 92 T: 60 QT: 415 QTc: 411 Interpretive Statements SINUS BRADYCARDIA Compared to ECG 04/03/2019 10:17:54 Sinus rhythm no longer present Electronically Signed On 12-04-2023 18:21:12 CDT by CALVIN SANZ [email or web address]
--- NOTE | 2023-12-02 11:19 | P.ANESASSM_ITS ---
Pre-Anesthetic Assessment Height/Weight: Height 5 ft 10 in Weight 209 lb O2 Del Method Room Air 12/02/23 10:56 Preop Diagnosis: abnormal uterine bleeding Operation Date: 12/02/23 11:55 Proposed Procedures p Hysteroscopy Hysteroscopy w/ Endometrial Sampling 18599, N93.9(Not Applicable) - Ivan Good MD s Possible endometrial Poylpectomy(Not Applicable) - Ivan Good MD Was Beta Tony taken within 24 hours: N/A Was Clonidine taken within 24 hours: N/A Last intake: Intake Last Liquid Date 12/01/23 Last Liquid Time 23:55 Last Solid Date 12/01/23 Last Solid Time 19:30 Exam alert, oriented x 3, clear to auscultation bilaterally and regular rate & rhythm Airway Submandibular: within normal limits Cervical ROM: within normal limits Mallampati: Class II Dentition: full Anesthetic Plan ASA status: 2 Anesthesia: General Other: No prior issues with anesthesia NPO since yesterday evening History of hypertension on lisinopril Type 2 diabetes on Mounjaro, taken 11/22/2023 Denies any pulmonary issues METs greater than 4 Plan for general anesthesia with LMA Medications/Allergies Home Medications Medication Instructions Recorded Confirmed Last Taken Type atorvastatin 10 mg tablet 10 mg PO DAILY 10/20/23 12/01/23 12/01/23 History empagliflozin 10 mg tablet 10 mg PO DAILY 10/20/23 12/01/23 12/01/23 History (Jardiance) glimepiride 1 mg tablet 1 mg PO DAILY 10/20/23 12/01/23 12/01/23 History lisinopril 2.5 mg tablet 2.5 mg PO DAILY 10/20/23 12/01/23 12/01/23 History tirzepatide 5 mg/0.5 mL mg SUBCUT 12/01/23 11/22/23 History subcutaneous pen injector (Mounjaro) Allergies Allergy/AdvReac Type Severity Reaction Status Date / Time No Known Allergies Allergy Verified 12/01/23 08:57 [facility] Anesthesia Medical History (Updated 10/20/23 @ 17:06 by Kanwal Lozano APN, TANYA) No pertinent past medical history Neghx:thyroid,dvt/pe PCP: Dr. Peters Accelerated essential hypertension Type 2 diabetes mellitus Osteoarthritis of knees, bilateral Patient is s/p bilateral total knee arthroplasties. Surgical History (Updated 10/20/23 @ 16:56 by Kanwal Lozano APN, TANYA) History of bilateral knee replacement H/O tubal ligation Hx of cholecystectomy History of arthroscopic knee surgery Family History Brother Diabetes Hypertension Father Cancer Stomach cancer Mother Breast cancer Hypertension Sister Hypertension Denies family history of Ovarian cancer Prostate cancer Uterine cancer Thyroid disease Stroke Social History Smoking and tobacco/nicotine status: never used tobacco/nicotine Data Anesthesia 12/02/23 11:13 Cardiac Studies: 2 No Data to Display
[2023-12-02 11:20] LABS: Glucose Point of Care 134 mg/dL (70-110)
[2023-12-02 11:40] LABS: Anion Gap 13.2 (5-19); Blood Urea Nitrogen 17 mg/dL (8-23); Carbon Dioxide 25 mmol/L (22-29); Chloride 105 mmol/L (98-107); Creatinine Clr Calc Pharmacy 106.6148; Glomerular Filtration Rate 85.4 mL/min (90-130); Glucose 152 mg/dL (65-115); Osmolality Calculated 293 mOsm/kg (285-295); Potassium 4.2 mmol/L (3.5-5.1); Sodium 139 mmol/L (136-145)
--- NOTE | 2023-12-02 12:09 | W.PM.OPSUD ---
Surgery/Procedure H&P Update DATE OF PROCEDURE: December 02, 2023 DATE H&P PERFORMED: 12/02/23 H&P UPDATE INFORMATION: I have reviewed H&P completed within last 30 days, I have examined patient prior to procedure and No changes to prior documentation PREOP DIAGNOSIS: abnormal uterine bleeding PLANNED PROCEDURE: Operation Date: 12/02/23 11:55 Proposed Procedures p Hysteroscopy Hysteroscopy w/ Endometrial Sampling 49194, N93.9(Not Applicable) - Ivan Good MD s Possible endometrial Poylpectomy(Not Applicable) - Ivan Good MD
[2023-12-02] MEDS: sodium chloride 0.9% 1,000 ML 30 ML IV (12:18)
--- NOTE | 2023-12-02 14:05 | PM.OP ---
Operative Report Date of procedure: December 02, 2023 Pre-op diagnosis: postmenopausal bleeding Post-op diagnosis: same Post-op findings: one 6 cm endocervical polyp several small endometrial polyps moderate amount of endometrial tissue Procedure done: removal of 6 cm endocervical polyp Hysteroscopy Endometrial sampling and polypectomy with Myosure curettage of uterus Implants: none Specimens removed/disposition: endocervical polyp endometrial tissue Surgeon: Ivan Good MD Anesthesia: MAC Estimated blood loss (mL): 5 Complications: none Findings: one 6 cm endocervical polyp several small endometrial polyps moderate amount of endometrial tissue Brief History: 58 y.o. LNMP 2018 Had episode of vaginal bleeding in August with clots and cramping No bleeding or spotting since Procedure: Informed consent signed. Patient was taken to the operating room. Anesthesia was induced. Patient was placed in dorsolithotomy position, prepped and draped for hysteroscopy. A bivalve speculum was placed in the vagina. There was a 6 cm endocervical polyp visible at the cervical os. This was removed and sent to pathology by rotating around its stalk. The vagina was normal. The cervical os was widely open. The anterior lip of the cervix was grasped with a sharp-toothed tenaculum. The uterus was sounded to 8 cm. A hysteroscope was placed into the endometrial cavity. There were several small endometrial polyps. Moderate amount of endometrial tissue was seen. A Myosure device was then inserted and the endometrial polyps were removed and sent to pathology. Endometrial sampling was also done. The endometrial cavity was seen to be intact. The hysteroscope and Myosure were then removed. A sharp curette was also used to obtain a small amount of endometrial tissue. Endometrial tissue was sent to pathology. The sharp-toothed tenaculum was removed. There was no bleeding from the endometrial cavity or cervix. The patient was then placed supine and awakened and taken to the PACU. Postop condition: stable EBL: 5 cc Sponge and instruments counts were normal x 2 Complications: none
--- NOTE | 2023-12-02 14:34 | ANE.PACU2 ---
Inpatient post-anesthesia follow up: Airway intact: Yes Vital signs: Temperature 97.4 F Pulse Rate 68 Respiratory Rate 18 Blood Pressure 156/78 Pulse Oximetry 98 Oxygen Delivery Me thod Room Air Oxygen Flow Rate Fraction of Inspir ed Oxygen Hydration adequate: Yes Nausea and vomiting: No Pain level: 1 Mental status: Baseline
== END 2023-12-02 14:34 | disposition home or self-care (01) ==
PROVIDERS: Student in an Organized Health Care Education/Training Program; PCP Electrodiagnostic Medicine; Visit Provider Obstetrics & Gynecology
PROC: 0UJD8ZZ Inspection of Uterus and Cervix, Via Natural or Artificial Opening Endoscopic (ICD-10-PCS; CPT 58555; principal; 2023-12-02 11:45)
PROC: (CPT 58558; 2023-12-02 11:45)
DX: N95.0 Postmenopausal bleeding (principal); N84.0 Polyp of corpus uteri; I10 Essential (primary) hypertension; E11.9 Type 2 diabetes mellitus without complications
CPT/HCPCS: 58558; 36415; 36416; 80048; 82962; 88305; 93005; J0131; J1100; J1885; J2250; J2405; J2704; J3010; J7030

== ENCOUNTER 2024-09-19 07:45 | Outpatient (CLI) | payer BC, OTHER, SELFPAY ==
--- NOTE | 2024-09-19 07:51 | MM_ITS ---
WS: [id number] BILATERAL 3D TOMOSYNTHESIS DIGITAL SCREENING MAMMOGRAPHY WITH CAD CLINICAL INFORMATION: SCREENING HISTORY: Screening mammogram. No current complaints. COMPARISON: 2023 TECHNIQUE: Bilateral CC and MLO views. FINDINGS: Scattered fibroglandular densities bilaterally. No suspicious focal mass, asymmetry, calcifications, or architectural distortion. No evidence of malignancy. Vascular calcification. Incidental punctate and lucent centered calcifications. MM/MM scr tomosynthesis [id number] IMPRESSION: DENSITY: There are scattered areas of fibroglandular density. BI-RADS: 2 - Benign. FOLLOW UP: 1 Year Follow-up Recommend return to annual screening mammography.
== END 2024-09-19 07:46 | disposition home or self-care (01) ==
LOC: RAD 07:46
PROVIDERS: PCP Electrodiagnostic Medicine; Visit Provider Electrodiagnostic Medicine
DX: Z12.31 Encounter for screening mammogram for malignant neoplasm of breast (principal); R92.323 Mammographic fibroglandular density, bilateral breasts; R92.1 Mammographic calcification found on diagnostic imaging of breast
CPT/HCPCS: 77063; 77067